=== PATIENT | female | born 1980 | race Two or more races ===

== ENCOUNTER 2017-12-16 03:57 | Emergency (ER) | payer BC ==
--- NOTE | 2017-12-16 04:22 | ED Physician Documentation ---
PD HPI LOWER EXT INJURY - Stated complaint Stated Complaint: RT ANKLE/FOOT INJURY - Chief complaint Chief Complaint: Ext Problem - History obtained from History obtained from: Patient - History of Present Illness PD HPI LOW EXT INJURY LOCATION: Right, Ankle Type of injury: Twist Where injury occurred: Street Timing - onset: Yesterday Timing - details: Abrupt onset Improved by: Rest Worsened by: Moving Associated symptoms: Swelling Recently seen: Not recently seen - Additional information Additional information: patient is running in [employer] and sustained twisting injury yesterday morning while running, c/o right ankle pain and swelling. despite the injury, she continued to participate in the race during the day yesterday. Review of Systems Musculoskeletal: reports: Joint pain, Joint swelling, Pain with weight bearing Neurologic: denies: Focal weakness, Numbness PD PAST MEDICAL HISTORY - Past Medical History Past Medical History: No - Past Surgical History Past Surgical History: No - Present Medications Home Medications: Ambulatory Orders Medication Instructions Recorded Confirmed Fexofenadine HCl [Archana Allergy] 1 tab PO DAILY 12/16/17 - Allergies Allergies/Adverse Reactions: Allergies Allergy/AdvReac Type Severity Reaction Status Date / Time tegaderm Allergy Rash Uncoded 12/16/17 04:07 PD ED PE NORMAL - Vitals Vital signs reviewed: Yes - General General: Alert and oriented X 3, No acute distress, Well developed/nourished - Derm Derm: Normal color, Warm and dry - Neuro Neuro: No motor deficit, No sensory deficit PD ED PE EXPANDED - Extremities Extremities: Tenderness (minimal right ankle tenderness, lateral aspect), Swelling, Right ankle Results - Vitals Vitals: Oxygen O2 Source Room air - Rads (name of study) right ankle xrays Radiology: Prelim report reviewed, See rad report PD MEDICAL DECISION MAKING - ED course Complexity details: reviewed results, re-evaluated patient, considered differential, d/w patient - Sepsis Event Vital Signs: Oxygen O2 Source Room air Departure - Departure Disposition: 01 Home, Self Care Clinical Impression: Ankle sprain Condition: Good Instructions: ED Sprain Ankle W X Ray Follow-Up: CRISTOFER BAZAN [Primary Care Provider] - (Follow up in 4-5 days if symptoms persist; particularly if you find it difficult to push downwards with your foot (as if stepping on a pedal or stepping on tip toes)) Discharge Date/Time: 12/16/17 06:18
--- NOTE | 2017-12-16 05:20 | XRAY Report ---
Procedure Date: 12/16/2017 Accession Number: [id number] / [id number] Procedure: XR - Ankle 3 View RT CPT Code: FULL RESULT: EXAM: RIGHT ANKLE RADIOGRAPHY EXAM DATE: 12/16/2017 04:53 AM. CLINICAL HISTORY: Injury, swelling, pain. COMPARISON: None. TECHNIQUE: 3 views. FINDINGS: Bones: No fracture seen. Plantar calcaneal osteophyte. Joints: No dislocation seen. Ankle mortise appears intact. No joint effusion identified. Soft Tissues: Mild soft tissue swelling. IMPRESSION: 1. No acute fracture or dislocation seen in the ankle. [facility]
[2017-12-16 05:49] VITALS: BP 122/87
[2017-12-16] MEDS ORDERED: IBUPROFEN 600 MG TABLET PO STA (05:49)
== END 2017-12-16 06:18 | disposition home or self-care (01) ==
LOC: ED 03:57
DX: S93.401A Sprain of unspecified ligament of right ankle, initial encounter (principal); X50.1XXA Overexertion from prolonged static or awkward postures, initial encounter; Y93.02 Activity, running
CPT/HCPCS: 73610; 99282; 99283; A9270